=== PATIENT | male | born 1985 | race African-American/Black ===

== ENCOUNTER 2023-10-27 11:25 | Emergency (ER) | payer SELFPAY ==
[2023-10-27 11:46] VITALS: BP 112/69; PULSE 86; RESP 18; TEMP 97.8; BMI 27.0
[2023-10-27] MEDS: LIDOCAINE 4% PATCH TP ONE (12:08)
[2023-10-27] MEDS: CYCLOBENZAPRINE HCL 10 MG TABLET (FP) PO ONE (12:08)
[2023-10-27] MEDS: KETOROLAC TROMETHAMINE 30 MG/1 ML VIAL IM ONE (12:08)
[2023-10-27] MEDS: ACETAMINOPHEN 500 MG TABLET (FP) PO ONE (12:09)
[2023-10-27] MEDS ORDERED: LIDOCAINE PATCH REMOVAL MC ONE (22:00)
== END 2023-10-27 14:29 | disposition home or self-care (01) ==
LOC: JERFT 11:25
PROC: 3E0233Z Introduction of Anti-inflammatory into Muscle, Percutaneous Approach (ICD-10-PCS; principal; 2023-10-27)
DX: M25.552 Pain in left hip (principal)
CPT/HCPCS: 73502-TC-LT-FY; 99284-25